=== PATIENT | female | born 1965 | race Two or more races ===

== ENCOUNTER 2018-04-16 23:20 | Emergency (ER) | payer MEDICAID ==
[~2018-04-16] VITALS: Ht 170.2 cm; Wt 106.9 kg
[2018-04-16] MEDS ORDERED: OMEP10CA4 PO (23:35)
--- NOTE | 2018-04-16 23:35 | NUR ---
PT IN GOWN IN [facility]. 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 VSS. PT EDUCATED ON ER PROCESS AND POC AND VERBALIZES UNDERSTANDING. FAMILY AT BS. CALL LIGHT IS WITHIN REACH.
--- NOTE | 2018-04-17 00:05 | NUR ---
INITIAL CONTACT WITH PT. PT STATES HAS ONSET OF CP @ 1700 THIS EVENING, L CHEST, L SHOULDER, STATES 8/10 PRESSURE THAT INCREASES WITH COUGH OR RESPIRATIONS. 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 FAMILY MEMBER WITH PT.
[2018-04-17] MEDS ORDERED: KETOROLAC 30 MG/1 ML IM ONE (00:30)
[2018-04-17] MEDS ORDERED: KETOROLAC 30 MG/1 ML ONE (00:33)
[2018-04-17 00:38] LABS: BASOPHILS # (AUTO) 0.08 x10^3/uL (0-0.1); BASOPHILS % (AUTO) 1 % (0-1); EOSINOPHILS # (AUTO) 0.22 x10^3/uL (0-0.4); EOSINOPHILS % (AUTO) 3 % (1-7); LYMPHOCYTES # (AUTO) 2.65 x10^3/uL (1-3.4); LYMPHOCYTES % (AUTO) 31 % (22-44); MD NO; MEAN CORPUSCULAR VOLUME 85.1 fL (80-100); MEAN PLATELET VOLUME 9.1 fL (7.4-10.4); MONOCYTES # (AUTO) 0.62 x10^3/uL (0.2-0.8); MONOCYTES % (AUTO) 7 % (2-9); NEUTROPHILS # (AUTO) 5.02 x10^3/uL (1.8-6.8); NEUTROPHILS % (AUTO) 59 % (42-75); PLATELET COUNT 280 x10^3/uL (130-400); RED BLOOD COUNT 4.27 x10^6/uL (3.82-5.3); RED CELL DISTRIBUTION WIDTH 14.9 % (9.6-15.2)
[2018-04-17 00:46] LABS: ALANINE AMINOTRANSFERASE 14 U/L (12-78); ALBUMIN 2.8 g/dL (3.4-5.0); ANION GAP 4 mmol/L (5-15); CALCIUM 8.5 mg/dL (8.5-10.1); CHLORIDE 112 mmol/L (98-107); CREATININE 0.61 mg/dL (0.55-1.02)
[2018-04-17 00:50] LABS: ALKALINE PHOSPHATASE 84 U/L (45-117); TOTAL PROTEIN 7.4 g/dL (6.4-8.2); TROPONIN I < 0.015 ng/mL (0.000-0.045)
[2018-04-17 00:52] LABS: BILIRUBIN,TOTAL < 0.1 mg/dL (0.2-1.0)
--- NOTE | 2018-04-17 01:17 | NUR ---
PT IN XRAY AT THIS TIME.
[2018-04-17] MEDS ORDERED: PROPOFOL 100 ML IV ONE (01:43)
[2018-04-17] MEDS ORDERED: ACETAMINOPHEN 500 MG TABLET ONE (01:44)
[2018-04-17] MEDS ORDERED: ACETAMINOPHEN 500 MG TABLET PO ONE (02:00)
--- NOTE | 2018-04-17 02:58 | NUR ---
BREAK RN: BACK FROM CT SCAN, AWAITING RESULT.
[2018-04-17] MEDS ORDERED: OMNIPAQUE 350 MG/ML, 100ML BOTTLE ONE (03:01)
--- NOTE | 2018-04-17 04:07 | NUR ---
PT DC'D HOME WITH UNDERSTANDING OF INSTRUCTION. PT AND FAMILY MEMBER TO DC DESK, PT GAIT STEADY.
[2018-04-17 04:08] VITALS: BP 105/56
== END 2018-04-17 04:10 | disposition home or self-care (01) ==
LOC: ED 04-17 04:00
DX: S46.912A Strain of unspecified muscle, fascia and tendon at shoulder and upper arm level, left arm, initial encounter (principal); R07.89 Other chest pain; X58.XXXA Exposure to other specified factors, initial encounter; Y93.89 Activity, other specified; Y92.89 Other specified places as the place of occurrence of the external cause; Y99.8 Other external cause status
CPT/HCPCS: 36415; 71045; 71275; 73030; 80053; 84484; 85025; 85379; 93005; 96372; 99284; J1885; Q9967